=== PATIENT | female | born 1980 | race African-American/Black ===

== ENCOUNTER 2016-10-13 13:07 | Emergency (ER) | payer OTHER ==
[~2016-10-13] VITALS: Ht 167.6 cm; Wt 61.2 kg
[2016-10-13] MEDS ORDERED: LORAZEPAM INJ 2 MG/ML VIAL ONE (13:10)
[2016-10-13] MEDS ORDERED: LORAZEPAM INJ 2 MG/ML VIAL IVP ONE (13:30)
[2016-10-13 13:38] LABS: HEMATOCRIT 43 % (33-45); HEMOGLOBIN 14.4 g/dL (11.5-14.8); MEAN CORPUSCULAR HEMOGLOBIN 31 PG (26.0-33.0); MEAN CORPUSCULAR HGB CONC 34 g/dl (31.0-36.0); MEAN CORPUSCULAR VOLUME 91 fL (82-100); PLATELET COUNT (AUTO) 292 /CMM (150-450); RED BLOOD CELL COUNT(AUTO) 4.74 MIL/uL (4.0-5.2); WHITE BLOOD COUNT (AUTO) 13.6 K/uL (4.3-11.0)
[2016-10-13 13:45] LABS: CALCIUM, SERUM 8.9 mg/dL (8.5-10.1); CREATININE 1.7 mg/dL (0.6-1.3); POTASSIUM 3.3 mmol/L (3.5-5.1)
[2016-10-13 14:02] LABS: EOSINOPHILS % (MANUAL) 2 % (0-4); LYMPHOCYTES % (MANUAL) 36 % (16-48); PLATELET ESTIMATE ADEQUATE
[2016-10-13 14:50] VITALS: BP 106/79
== END 2016-10-13 14:51 | disposition home or self-care (01) ==
LOC: ER 13:08
DX: R56.9 Unspecified convulsions (principal)
CPT/HCPCS: 36415; 80048; 85025; 93005; 96374; 99285; A4606; J2060; Z7610